=== PATIENT | male | born 1970 | race Caucasian/White ===

== ENCOUNTER 2024-08-06 18:55 | Emergency (ER) | payer BC, SELFPAY ==
[2024-08-06 19:00] VITALS: BP 160/101; PULSE 76; RESP 20; TEMP 37.3; O2SAT 100
[2024-08-06 19:11] VITALS: BP 160/101; PULSE 76; RESP 20; TEMP 37.3; O2SAT 100
--- NOTE | 2024-08-06 19:22 | ED_ITS ---
HPI - General Adult General Chief complaint: Skin/Abscess/Foreign Body Stated complaint: wound on right elbow Source: patient Mode of arrival: ambulatory Limitations: no limitations History of Present Illness HPI narrative: Patient presents for evaluation of an abrasion to the right elbow. He first noticed the symptoms yesterday. He believes he may have been bit by a brown recluse but did not actually visualize an insect. He has constant sharp pain in the affected area. He noted some watery yellow discharge from a blister that was in that area but has since erupted. He denies any fever, chills, nausea, or vomiting. He is not diabetic. Date of last tetanus unknown. He is an everyday smoker. 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 Denies loss of range of motion of the right elbow Related Data Home Medications Medication Instructions Recorded Confirmed albuterol sulfate 90 mcg/actuation See Rx Instructions .Route 08/06/24 08/06/24 aerosol inhaler .COMPLEX PRN sob fluticasone 500 mcg-salmeterol 50 1 inh inhalation BID 08/06/24 08/06/24 mcg/dose blistr powdr for inhalation Allergies Allergy/AdvReac Type Severity Reaction Status Date / Time No Known Allergies Allergy Verified 08/06/24 19:10 Review of Systems Review of Systems: CONSTITUTIONAL: Denies fever, chills, or sweats. EYES: Denies visual changes, redness, or discharge. ENT: Denies rhinorrhea, congestion, sore throat, or otalgia. CARDIOVASCULAR: Denies chest pain, palpitations, or edema. RESPIRATORY: Denies cough or dyspnea. GASTROINTESTINAL: Denies abdominal pain, nausea, vomiting, or diarrhea. GENITOURINARY: Denies dysuria or hematuria. SKIN: Reports recent blister in the right elbow that has since erupted. Reports abrasion overlying the right elbow MUSCULOSKELETAL: Reports right elbow pain. NEUROLOGIC: Denies headache, numbness, dizziness, or weakness. PSYCHIATRIC: Denies anxiety or depression. [facility] Past Medical History Medical History Asthma Presence of internal fixation beckie in right upper extremity Surgical History Surgical History History of cholecystectomy History of surgery on arm Family History Family History Mother Family history unknown Social History Social History Smoking status: Current every day smoker Tobacco type: cigarettes Gender identity (if verbalized by the patient): Male Spiritual care concerns: No Exam Narrative: GENERAL: Well-appearing, well-nourished, and in no acute distress. HEAD: Normocephalic, atraumatic. EYES: PERRLA and EOMI. ENT: Nares clear, no rhinorrhea or epistaxis. Mucous membranes moist. Oropharynx without tonsillar hypertrophy exudate or other lesions. Bilateral TMs pearly aguila nonbulging NECK: Supple. No adenopathy or masses. No carotid bruits or JVD CHEST: Clear to auscultation. No respiratory distress. No wheezes rales or rhonchi HEART: Regular rate and rhythm. No murmur heard. Normal peripheral pulses. ABDOMEN: Soft, nontender, nondistended, normal active bowel sounds. EXTREMITIES: Normal range of motion. No edema. SKIN: There is a 2 x 3 cm abrasion noted to the right elbow with some surrounding erythema. There is no fluctuance or induration present. NEURO: No focal deficits. Alert and oriented x3. PSYCH: Normal mood and affect. Course Course Emergency Course: This is a 53-year-old male who presented for evaluation of abrasion to the right elbow. Wound cultures obtained. Will discharge with cephalexin, Bactrim, ibuprofen. Antibiotic ointment applied and non adherent dressing. Advised on care. He has no loss of range of motion to suggest infected hardware. This looks quite superficial. He should follow-up with his primary care provider go to the emergency department for loss of range of motion or worsening symptoms. Patient in agreement with plan of care. Level of Care: Express Care Visit Vital Signs Vital signs: Vital Signs Temperature 37.3 C 08/06/24 19:00 Pulse Rate 76 08/06/24 19:00 Respiratory Rate 20 08/06/24 19:00 Blood Pressure 160/101 H 08/06/24 19:00 Pulse Oximetry 100 08/06/24 19:00 Oxygen Delivery Room Air 08/06/24 19:00 Temperature 37.3 C 08/06/24 19:11 Pulse Rate 76 08/06/24 19:11 Respiratory Rate 20 08/06/24 19:11 Blood Pressure 160/101 H 08/06/24 19:11 Pulse Oximetry 100 08/06/24 19:11 Oxygen Delivery Room Air 08/06/24 19:11 Medical Decision Making Vital Signs Vital Signs: Vital Signs Temperature 37.3 C 08/06/24 19:00 Pulse Rate 76 08/06/24 19:00 Respiratory Rate 20 08/06/24 19:00 Blood Pressure 160/101 H 08/06/24 19:00 Pulse Oximetry 100 08/06/24 19:00 Oxygen Delivery Room Air 08/06/24 19:00 Temperature 37.3 C 08/06/24 19:11 Pulse Rate 76 08/06/24 19:11 Respiratory Rate 20 08/06/24 19:11 Blood Pressure 160/101 H 08/06/24 19:11 Pulse Oximetry 100 08/06/24 19:11 Oxygen Delivery Room Air 08/06/24 19:11 Discharge Plan Discharge Clinical Impression: Abrasion of elbow, right, Cellulitis of right elbow Patient Disposition: Home, Self-Care Condition: Stable Instructions: Antibiotic Form, Cellulitis (ED), Abrasion (ED) Patient Language: Hungarian Prescriptions: New ibuprofen 800 mg tablet 800 mg PO TID PRN (Reason: pain) Qty: 30 0RF sulfamethoxazole-trimethoprim [Bactrim DS] 800-160 mg tablet 1 tablet PO Q12H Qty: 20 0RF cephalexin 500 mg capsule 500 mg PO Q6H 10 Days Qty: 40 0RF No Action fluticasone propion-salmeterol 500-50 mcg/dose blister with device 1 inh INHALATION BID albuterol sulfate 90 mcg/actuation HFA aerosol inhaler See Rx Instructions .ROUTE .COMPLEX PRN (Reason: sob) Rx Instructions: as prescribed Follow-up/Referrals: Roland Foster DO [Physician] - Time of Disposition: 19:17
[2024-08-06] MEDS: TETANUS,DIPHTHERIA,AC PERTUSSIS ADULT (0.5 ML) BOOSTRIX IM (19:28)
== END 2024-08-06 19:50 | disposition home or self-care (01) ==
PROVIDERS: Emergency Provider Nurse Practitioner
DX: S50.311A Abrasion of right elbow, initial encounter (principal); X58.XXXA Exposure to other specified factors, initial encounter; L03.113 Cellulitis of right upper limb; Z23 Encounter for immunization; F17.210 Nicotine dependence, cigarettes, uncomplicated; J45.909 Unspecified asthma, uncomplicated
CPT/HCPCS: 87070; 87075; 87205; 90471; 90715; 99203; G0463